=== PATIENT | male | born 2000 | race Two or more races ===

== ENCOUNTER 2024-12-07 07:55 | Inpatient (IN) | payer SELFPAY ==
[~2024-12-07] VITALS: Ht 180.3 cm; Wt 88.8 kg
[2024-12-07 09:02] LABS: Urine Bacteria FEW /hpf (None Seen); Urine Blood Negative /uL (Negative); Urine Clarity Clear (Clear); Urine Color Yellow (Yellow); Urine Mucus FEW (None Seen); Urine Protein, UAD TRACE (Negative); Urine Specific Gravity 1.029 (1.001-1.035); Urine Squamous Epithelial Cell FEW /hpf (<5); Urine Urobilinogen 2 mg/dL (Negative); Urine WBC 3 /HPF (0-3); Urine pH 7.5 (5.0-9.0)
--- NOTE | 2024-12-07 10:00 | ED.PDOC ---
GI ASSESSMENT HPI Comments 24 y.o male presents to the ED for a chief complaint of nausea, vomiting and diffused abdominal pain that started 2 days ago. Patient reports multiple episodes of emesis per day and is unable to keep any solids or fluids down. Patient reports similar symptoms occurred one month ago, was seen at [place] and had a CT scan with contrast in which he was referred to a grade recorder for possible PUD scope. Patient is awaiting for appointment confirmation but states this episode has been constant with sharp abdominal pain. He denies any dysuria, fever, chills, bleeding, diarrhea. Chief Complaint: Nausea/Vomiting Time Seen by MD: 09:15 Primary Care Provider: SHAY Reviewed Notes: Nurses Notes, Medications, Allergies Allergies: Coded Allergies: NO KNOWN ALLERGIES (Unverified , 12/07/24) Information Source: Patient Mode of Arrival: Ambulatory Timing: Days (2) Duration: Since onset Quality: Aching Vomitus: Hard Stool: Normal Severity: Moderate Recent: None Recent Hx of: None Pain Location: Diffuse Modifying Factors: Nothing Associated sign and symptoms: Nausea, Vomiting, Abdominal Pain Past Medical History PAST MEDICAL HISTORY: Denies Surgical History: Denies all surgeries Family History Family History: Reviewed,noncontributory to illness Social History Smoker: Non-Smoker Alcohol: Denies ETOH Use Drugs: Denies Drug Use Lives In: Home Constitutional: denies: chills, diaphoresis, fatigue, fever, malaise, sweats, weakness, others EENTM: denies: blurred vision, double vision, ear bleeding, ear discharge, ear drainage, ear pain, ear ringing, eye pain, eye redness, hearing loss, mouth pain, mouth swelling, nasal discharge, nose bleeding, nose congestion, nose pain, photophobia, tearing, throat pain, throat swelling, voice changes, others Respiratory: denies: cough, hemoptysis, orthopnea, SOB at rest, shortness of breath, SOB with excertion, stridor, wheezing, others Cardiovascular: denies: chest pain, dizzy spells, diaphoresis, Dyspnea on ex ertion, edema, irregular heart beat, left arm pain, lightheadedness, palpitations, PND, syncope, others Gastrointestinal: reports: abdominal pain, nausea, vomiting; denies: abdomen distended, blood streaked bowels, constipated, diarrhea, dysphagia, difficulty swallowing, hematemesis, melena, poor appetite, poor fluid intake, rectal bleeding, rectal pain, others Genitourinary: denies: burning, dysuria, flank pain, frequency, hematuria, incontinence, penile discharge, penile sore, pain, testicle pain, testicle swelling, urgency, others Neurological: denies: dizziness, fainting, headache, left sided numbness, left sided weakness, numbness, paresthesia, pre-existing deficit, right sided numbness, right sided weakness, seizure, speech problems, tingling, tremors, weakness, others Musculoskeletal: denies: back pain, gout, joint pain, joint swelling, muscle pain, muscle stiffness, neck pain, others Integumetry: denies: bruises, change in color, change in hair/nails, dryness, laceration, lesions, lumps, rash, wounds, others Allergic/Immunocompromised: denies: Difficulty Healing, Frequent Infections, Hives, Itching, others Hematologic/Lymphatic: denies: anemia, blood clots, easy bleeding, easy bruising, swollen glands, others Endocrine: denies: excessive hunger, excessive sweating, excessive thirst, excessive urination, flushing, intolerance to cold, intolerance to heat, unexplained weight gain, unexplained weight loss, others Psychiatric: denies: anxiety, bipolar disorder, depression, hopeless, panic disorder, schizophrenia, sleepless, suicidal, others All Other Systems: Reviewed and Negative Physical Exam General Appearance: Moderate Distress HEENT: Normal ENT Inspection, Pharynx Normal, TMs Normal Neck: Full Range of Motion, Non-Tender, Normal, Normal Inspection Respiratory: Chest Non-Tender, Lungs Clear, No Accessory Muscle Use, No Respiratory Distress, Normal Breath Sounds Cardiovascular: No Edema, No JVD, No Murmur, No Gallop, Normal Peripheral Pulses, Regular Rate/Rhythm Breast Exam: Deferred Gastrointestinal: No Organomegaly, Non Tender, No Pulsatile Mass, Normal Bowel Sounds, Soft Genitalia: Deferred Pelvic: Deferred Rectal: Deferred Extremities: No calf tenderness, Normal capillary refill, Normal inspection, Normal range of motion, Non-tender, No pedal edema Musculoskeletal : Apperance: Normal Neurologic: Alert, medical secretary teacher II-XII nml as Tested, No Motor Deficits, Normal Affect, Normal Mood, No Sensory Deficits Cerebellar Function: Normal Reflexes: Normal Skin: Dry, Normal Color, Warm Peripheral Pulses: 3+ Radial (R), 3+ Radial (L) Lymphatic: No Adenopathy Was a procedure done? Was a procedure done?: No GI differential Dx Differential Diagnosis: Constipation, Diverticular disease, Esophagitis, Gastritis/PUD, Gastroenteritis, Electrolyte Imbalance, Viral X-Ray, Labs, Meds, VS Vital Signs Date Time Temp Pulse Resp B/P (MAP) Pulse Ox O2 Delivery O2 Flow Rate FiO2 12/07/24 08:42 97.7 90 17 135/83 (100) 96 97.7 12/07/24 08:42 Room Air* 0 21 12/07/24 08:11 99.3 82 16 117/58 (77) 98 99.3 Lab Test 12/07/24 08:37 Range/Units Urine Color Yellow Yellow Urine Clarity Clear Clear Urine pH 7.5 5.0-9.0 Urine Specific [place] 1.029 1.001-1.035 Urine Protein Trace H Negative Urine Ketones 2+ H Negative Urine Blood Negative Negative /uL Urine Nitrite Negative Negative Urine Bilirubin Negative Negative Urine Urobilinogen 2 H Negative mg/dL Urine Leukocyte Esterase Negative Negative /uL Urine RBC 1 0 - 3 /hpf Urine Microscopic WBC 3 0-3 /HPF Urine Squamous Epithelial Cells Few <5 /hpf Urine Bacteria Few H None Seen /hpf Urine Mucus Few None Seen Urine Glucose Normal Normal mg/dL Patient alert. Complaining of epigastric discomfort. Vitals stable. Answering questions. Has been seen at [facility]. Possible gastric ulcer. He will need endoscope. GI consultation. Urinalysis shows ketones. Dehydration. Establish intravenous access. Was given fluids. Was given Zofran. Was given Protonix. Reviewed his history. Explained to the patient. Continue monitoring. Time of 1ST Reevaluation: 09:55 Reevaluation 1ST: Unchanged Patient Education/Counseling: Diagnosis, Treatment, Prognosis Family Education/Counseling: No Family Present Departure 1 Departure Time of Disposition: 10:24 Impression: Primary Impression: Acute abdominal pain Additional Impression: Peptic ulcer disease Disposition: ADMITTED INPATIENT Admit to: Med Surg Condition: Guarded Critical Care Note Critical Care Time?: No Stability Stability form required: No I personally scribed for RACHEAL LUDWIG MD ([email or web address]) on 12/07/24 at 10:00. Electronically submitted by Anahi Quintero ([facility]). RACHEAL LUDWIG MD Dec 07, 2024 10:00
[2024-12-07 10:42] LABS: Basophils # (auto) 0 10 ^3/uL (0-0.2); Basophils % (auto) 0.1 % (0.0-2.0); Eosinophils # (auto) 0 10 ^3/uL (0-0.8); Hematocrit 48.7 % (41.0-53.0); Hemoglobin 16.7 g/dL (13.5-17.5); Lymphocytes # (auto) 0.6 10 ^3/uL (0.4-5.4); Lymphocytes % (auto) 5.7 % (10.0-50.0); Mean Corpuscular Hemoglobin 29.1 pg (28.0-32.0); Mean Corpuscular Hgb Conc. 34.3 g/dL (32.0-36.0); Mean Corpuscular Volume 84.8 fL (80.0-100.0); Monocytes # (auto) 0.8 10 ^3/uL (0-1.3); Monocytes % (auto) 7.4 % (0.0-12.0); Neutrophils # (auto) 9.1 10 ^3/uL (1.6-8.6); Neutrophils % (auto) 86.8 % (37.0-80.0); Nucleated Red Blood Cells % 0.1 %; Platelet Count (auto) 257 10^3/uL (140-450); Red Blood Cells 5.74 10^6/uL (4.5-5.90); White Blood Cell 10.5 10^3/uL (4.4-10.8)
[2024-12-07 10:54] LABS: Chloride 101 mmol/L (98-107)
[2024-12-07] MEDS: ONDANSETRON HCL 4 MG/2 ML VIAL IV ONE (10:54)
[2024-12-07] MEDS: SODIUM CHLORIDE 0.9% 1,000 ML IV ONE (10:54)
[2024-12-07] MEDS: PANTOPRAZOLE 40 MG/10 ML VIAL INJ IV ONE ×2 (10:54→20:47)
[2024-12-07 10:55] LABS: Anion Gap 14 (5-15); Calcium 10.2 mg/dL (8.7-10.4)
[2024-12-07 11:00] LABS: BUN/Creatinine Ratio 17.2 (10.0-20.0); Blood Urea Nitrogen 17 mg/dL (9-23)
[2024-12-07 11:50] LABS: Carbon Dioxide 20 mmol/L (20-31); Glucose 106 mg/dL (74-106); Potassium 3.4 mmol/L (3.5-5.1); Sodium 135 mmol/L (136-145)
[2024-12-07] MEDS: HYDROcodone-ACET 5/325MG TAB PO ONE (15:43)
--- NOTE | 2024-12-07 20:30 | DVHHPRES ---
History of Present Illness Resident Creating Document: ELI VELÁZQUEZ RESIDENT History of Present Illness 24M medical history of possible peptic ulcer disease diagnosed at [place] with CT abdomen presented with complaints of nausea vomiting and abdominal pain since Sunday. Patient described that he has started having episodes of vomiting which was initially yellow green colored and today morning he had one episode where it was black-colored. Patient mentioned that he ran out of his medications of pantoprazole and Zofran after his possible peptic ulcer disease was diagnosed at [place]. He also mentioned he had sharp left upper quadrant abdominal pain which is on and off, initially was 8/10 now 12/04. He had almost 12 episodes of vomiting today. He was given ciprofloxacin on Sunday by HYDROLOGY TEACHER provider for left upper quadrant pain after which his symptoms got worsened. He denied any complaints of shortness of breath, chest pain, hematochezia, melena, dizziness, headache, abdominal distention. PMH ?PUD PSH Denied Social history smoking, quit one month ago, used to smoke two cigarettes per week alcohol, occasional denied marijuana , any other recreational drug intake Family history SBO f/b Sx in mother HTN DM2 Allergic history denied Review of Systems Review of Systems As described in the HPI Allergies: Coded Allergies: NO KNOWN ALLERGIES (Unverified , 12/07/24) Exam Vital Signs Vital Signs Date Time Temp Pulse Resp B/P (MAP) Pulse Ox O2 Delivery O2 Flow Rate FiO2 12/07/24 19:54 97.5 78 20 136/74 (94) 99 97.5 12/07/24 08:42 Room Air* 0 21 Exam Examination General Appearance: Alert, Oriented X3, Cooperative, No acute distress HEENT: EOMI Respiratory: Clear to auscultation, Normal air movement Cardiovascular: Regular rate, Normal S1, Normal S2 Abdominal: Normal bowel sounds Extremities: No cyanosis, No edema, Normal pulses, No tenderness/swelling Skin: No rashes, No breakdown Neuro: Normal gait, Normal speech, Strength at 5/5 X4 ext, Normal tone, Sensation intact, Cranial nerves 3-12 NL, Reflexes 2+ Psych/Mental Status: Mental status NL, Mood NL Labs/Xrays Labs Test 12/07/24 10:28 12/07/24 08:37 Range/Units White Blood Count 10.5 4.4-10.8 10^3/uL Red Blood Count 5.74 4.5-5.90 10^6/uL Hemoglobin 16.7 13.5-17.5 g/dL Hematocrit 48.7 41.0-53.0 % Mean Corpuscular Volume 84.8 80.0-100.0 fL Mean Corpuscular Hemoglobin 29.1 28.0-32.0 pg Mean Corpuscular Hemoglobin Concent 34.3 32.0-36.0 g/dL Red Cell Distribution Width 14.0 11.8-14.3 % Platelet Count 257 140-450 10^3/uL Mean Platelet Volume 8.5 6.9-10.8 fL Neutrophils (%) (Auto) 86.8 H 37.0-80.0 % Lymphocytes (%) (Auto) 5.7 L 10.0-50.0 % Monocytes (%) (Auto) 7.4 0.0-12.0 % Eosinophils (%) (Auto) 0.0 0.0-7.0 % Basophils (%) (Auto) 0.1 0.0-2.0 % Neutrophils # (Auto) 9.1 H 1.6-8.6 10 ^3/uL Lymphocytes # (Auto) 0.6 0.4-5.4 10 ^3/uL Monocytes # (Auto) 0.8 0-1.3 10 ^3/uL Eosinophils # (Auto) 0 0-0.8 10 ^3/uL Basophils # (Auto) 0 0-0.2 10 ^3/uL Nucleated Red Blood Cells 0.1 % Sodium Level 135 L 136-145 mmol/L Potassium Level 3.4 L 3.5-5.1 mmol/L Chloride Level 101 98-107 mmol/L Carbon Dioxide Level 20 20-31 mmol/L Anion Gap 14 5-15 Blood Urea Nitrogen 17 9-23 mg/dL Creatinine 0.99 0.700-1.30 mg/dL Glomerular Filtration Rate Calc 110 >90 mL/min BUN/Creatinine Ratio 17.2 10.0-20.0 Serum Glucose 106 74-106 mg/dL Calcium Level 10.2 8.7-10.4 mg/dL Urine Color Yellow Yellow Urine Clarity Clear Clear Urine pH 7.5 5.0-9.0 Urine Specific [place] 1.029 1.001-1.035 Urine Protein Trace H Negative Urine Ketones 2+ H Negative Urine Blood Negative Negative /uL Urine Nitrite Negative Negative Urine Bilirubin Negative Negative Urine Urobilinogen 2 H Negative mg/dL Urine Leukocyte Esterase Negative Negative /uL Urine RBC 1 0 - 3 /hpf Urine Microscopic WBC 3 0-3 /HPF Urine Squamous Epithelial Cells Few <5 /hpf Urine Bacteria Few H None Seen /hpf Urine Mucus Few None Seen Urine Glucose Normal Normal mg/dL Assessment/Plan Assessment/Plan Assessment and plan #Upper GI bleed #history of ?Peptic ulcer disease # gastritis seen on CT -NPO -IV protonix -zofran PRN -IV fluids -hemodynamic monitoring -CT abd with IV contrast -GI Consult for possible need for endoscopy # hypokalemia Corrected Monitor BMP # cannabis use disorder UDS positive for cannabis will deputy general counsel for cessation Case discussion with Dr Case Plan discussed with: Patient, Other My Orders Orders - ELI VELÁZQUEZ RESIDENT Procedure Category Date Status Time Admit ADMIT 12/07/24 Transmitted 20:22 Complete Blood Count LAB 12/08/24 Verified 04:00 Comprehensive LAB 12/08/24 Verified Metabolic Panel 04:00 Ct Ab Pel With Iv Con CT 12/07/24 Transmitted Only 20:22 Oxygen By Nasal RT 12/07/24 Transmitted Cannula 20:22 Stat Ekg For Chest MEHRDAD 12/07/24 Transmitted Pain 20:22 Notify Of Changes MEHRDAD 12/07/24 Transmitted From Base 20:22 Maintenance Advisor For MEHRDAD 12/07/24 Transmitted 24 Hours 20:22 Emergency Dysrhythmia MEHRDAD 12/07/24 Transmitted Protocol 20:22 Rhythm Strips Once MEHRDAD 12/07/24 Transmitted Every Shift 20:22 Pantoprazole PHA 12/08/24 Transmitted (Protonix) 10:00 Pantoprazole PHA 12/07/24 Transmitted (Protonix) 20:30 Drug Screen LAB 12/07/24 Transmitted 20:22 Potassium Chl Roberth PHA 12/07/24 Transmitted KCL 20:30 * Gi Dvh Legal Aide CONS 12/07/24 Transmitted 20:22 Npo After Midnight ORDERS 12/07/24 Transmitted Npo (Nothing By DIET 12/08/24 Transmitted Mouth) Diet Breakfast Ondansetron Hcl PHA 12/07/24 Verified (Zofran) 20:30 Date of Service: Dec 07, 2024 Billing Provider: TIARRA CASE MD Common Visit Codes: [id number] INP/OBS CARE (HIGH) ELI VELÁZQUEZ RESIDENT Dec 07, 2024 20:30 TIARRA CASE MD Dec 08, 2024 18:29
[2024-12-07] MEDS: POTASSIUM CHL 20MEQ/100ML 100 ML IV ONE (20:58)
[2024-12-07] MEDS: IOHEXOL 300 MG/ML 100ML BOTTLE IJ ONE (21:03)
[2024-12-07 21:45] LABS: Amphetamine Screen, Urine Neg (NEGATIVE); Barbiturate Scree,Urine Neg (NEGATIVE); Benzodiazephine Screen, Urine Neg (NEGATIVE); Cannabinoid Screen, Urine Pos (NEGATIVE); Cocaine Screen, Urine Neg (NEGATIVE); Opiate Scree,Urine Neg (NEGATIVE); Phencyclidine Screen, Urine Neg (NEGATIVE)
--- NOTE | 2024-12-07 22:42 | DVH ---
Examination: ABPLIV CLINICAL INDICATION: GI bleed COMPARISON: None. CONTRAST USED: Intravenous. TECHNIQUE: A post-contrast CT study of the abdomen and pelvis was performed after the administration of intravenous contrast medium. The examination was conducted with 5 mm thin slices, adhering to ALAR A (As Low as Reasonably Achievable) principles. Multiplanar reconstructions were obtained. FINDINGS: CT ABDOMEN: Lung Base: The evaluation of lung bases demonstrates no focal infiltrates or pleural effusion. Liver: The liver is mildly enlarged, measuring 18.9 cm in the craniocaudal axis. The portal venous ra dicles are normal. There is no intrahepatic biliary radicle dilatation. A tiny 2 mm cyst is noted in segment V. Spleen: The spleen is normal in size. No focal abnormality. Gallbladder: The gallbladder is distended. No intrinsic abnormality or pericholecystic fat stranding. The common bile duct is not dilated. Pancreas: The pancreas is normal in size and shape. No focal lesion is seen within. The peripancreati c fat-planes are normal. Retroperitoneum: Both adrenal glands are normal in size and morphology. There is no significant retro peritoneal lymphadenopathy. Right kidney is normal in size. No hydronephrosis or calculus. Left kidne y is normal in size. No hydronephrosis or calculus. Stomach and Small Bowel: The bowel loops are unremarkable. Mildly prominent gastric rugae raise the p ossibility of gastritis. Few subcentimeter sized central mesenteric and right iliac fossa lymph nodes are noted would be suggestive of reactive etiology. There is no ascites. Skeletal System: Thoracolumbar spine and pelvic bones do not reveal any significant abnormality. Vessels: Aorta, IVC, and the mesenteric vessels appear unremarkable. CT PELVIS: Appendix: The appendix is unremarkable in appearance. Colon: The ascending, transverse, descending, sigmoid colon, and rectum are unremarkable. Bladder: The urinary bladder is distended and normal. Pelvic Organs: The prostate is normal in size. No pelvic lymphadenopathy is identified. No abnormal f luid collection is seen. IMPRESSION: 1. The liver is mildly enlarged, measuring 18.9 cm in the craniocaudal axis, with a tiny 2 mm cyst i n segment V. 2. Mildly prominent gastric rugae suggest the possibility of gastritis. 3. Few subcentimeter sized central mesenteric and right iliac fossa lymph nodes are noted would be s uggestive of reactive etiology. 4. No intra-abdominal mass. 5. No ascites. 6. No free air or acute inflammatory changes. Electronically Signed 12/07/2024 22:40 Elijah Doss
[2024-12-08 02:08] VITALS: BP 105/49; PULSE 72; RESP 16; TEMP 98.4; O2SAT 98
[2024-12-08] MEDS ORDERED: PANT40T PO ×2 (04:16→14:13)
[2024-12-08] MEDS: ONDANSETRON HCL 4 MG/2 ML VIAL IV PRN (05:20)
[2024-12-08] MEDS: SODIUM CHL 0.9% 100 ML IV ONE (06:00)
[2024-12-08] MEDS: POTASSIUM CHL 20MEQ/50ML 50 ML IV ONE ×2 (06:00→08:15)
[2024-12-08 07:00] LABS: Basophils # (auto) 0 10 ^3/uL (0-0.2); Basophils % (auto) 0.2 % (0.0-2.0); Eosinophils # (auto) 0 10 ^3/uL (0-0.8); Eosinophils % (auto) 0.2 % (0.0-7.0); Hemoglobin 16.1 g/dL (13.5-17.5); Lymphocytes # (auto) 1.4 10 ^3/uL (0.4-5.4); Lymphocytes % (auto) 18.3 % (10.0-50.0); Mean Corpuscular Hemoglobin 29.4 pg (28.0-32.0); Mean Corpuscular Hgb Conc. 34.9 g/dL (32.0-36.0); Monocytes % (auto) 12.6 % (0.0-12.0); Neutrophils # (auto) 5.3 10 ^3/uL (1.6-8.6); Neutrophils % (auto) 68.7 % (37.0-80.0); Nucleated Red Blood Cells % 0.1 %; Platelet Count (auto) 275 10^3/uL (140-450); Red Blood Cells 5.48 10^6/uL (4.5-5.90); Red Cell Distribution Width 14.2 % (11.8-14.3); White Blood Cell 7.8 10^3/uL (4.4-10.8)
--- NOTE | 2024-12-08 07:19 | ECG ---
[facility] Test Date: 2024-12-08 Test Time: 07:05:33 Pat Name: BONNIE BROWN Department: ED Room: [address] [place] [address] A Gender: M Lead Systems Engineer: PRAVIN : 2000 Requested By: RACHEAL LUDWIG Order Number: [id number] Reading MD: Robbin Sheriff Measurements Intervals Post Rate: 61 P: 43 MD: 113 QRS: 98 QRSD: 98 T: 65 QT: 401 QTc: 404 Interpretive Statements Sinus rhythm Borderline short MD interval Consider right ventricular hypertrophy Electronically Signed On 12-10-2024 21:00:05 PDT by Robbin Sheriff Please click the below link to view image of tracing.
[2024-12-08 07:22] LABS: Alanine Aminotransferase 15 U/L (7-40); Alkaline Phosphatase 73 U/L (46-116); Anion Gap 12 (5-15); Aspartate Aminotransferase 17 U/L (13-40); BUN/Creatinine Ratio 14.3 (10.0-20.0); Blood Urea Nitrogen 15 mg/dL (9-23); Calcium 10.3 mg/dL (8.7-10.4); Carbon Dioxide 23 mmol/L (20-31); Chloride 103 mmol/L (98-107); Sodium 138 mmol/L (136-145)
[2024-12-08 07:23] LABS: Albumin 5.4 g/dL (3.2-4.8); Bilirubin, Total 1.5 mg/dL (0.2-1.0); Glucose 107 mg/dL (74-106); Potassium 3.3 mmol/L (3.5-5.1); Total Protein 8.8 g/dL (5.7-8.2)
[2024-12-08] MEDS: SODIUM CHLORIDE 0.9% 1,000 ML IV ONE (07:45)
[2024-12-08] MEDS: SODIUM CHLORIDE 0.9% 1,000 ML IV SCH (07:45)
[2024-12-08 07:56] VITALS: PULSE 92; RESP 17; O2SAT 94
[2024-12-08 10:07] LABS: COVID19 ANTIGEN SOFIA FIA NEGATIVE (NEGATIVE); Rapid Influenza A Negative (Negative); Rapid Influenza B Negative (Negative)
[2024-12-08] MEDS: PANTOPRAZOLE 40 MG/10 ML VIAL INJ IV SCH (10:33)
--- NOTE | 2024-12-08 11:58 | DVHINCON2 ---
GI Consult Consult Note GI consult note Date of Consultation: 12/08/2024 Chief Complaint: PUD, black colored vomiting Referring Physician: Dr. Dexter H&P: 24-year-old male presented to ER with nausea and vomiting and epigastric discomfort Patient had similar symptoms on and off for the past four months, but got worse last few days Patient has multiple episodes of nausea and vomiting, mostly yellow bile, one episode of black emesis yesterday, after patient had used activated charcoal Epigastric discomfort is right before the nausea and vomiting. No abdominal pain at this time No history of GERD. No EGD in past Patient admits to using weed gummies for the last 3-4 months, and this seems to be when his symptoms of nausea vomiting also got triggered Patient has stopped using the we had gummies in the last 7-10 days Denies melena or red blood in stool Patient also was seen at [facility] for similar symptoms, treated with Protonix, patient ran out of Protonix and presented to ER since he did know where he can get a refill with this Protonix Past Medical History: ?PUD Past Surgical History: Denies Social History: NO smoking, drinking ETOH + weed gummies Family History: Noncontributory Review of Systems: Constitutional: no fever, chill, weight loss HEENT: no eye pain, no hearing loss, no oral lesion, no scleral icterus Heart: no chest pain, no chest pressure Lung: no cough, no dyspnea with exertion Abdomen: see HPI Physical exam: General: NAD, AAOX3 Chest: lung downing clear to auscultation Heart: RRR, no murmur Abdomen: non-distended, no tenderness to palpation, +BS Labs: Labs Test 12/08/24 09:00 12/08/24 08:16 12/08/24 06:34 12/07/24 08:37 Range/Units Influenza Type A Antigen Negative Negative Influenza Type B Antigen Negative Negative SARS-CoV-2 Antigen (Rapid) Negative NEGATIVE Lactic Acid Level 0.9 0.4-2.0 mmol/L White Blood Count 7.8 # 4.4-10.8 10^3/uL Red Blood Count 5.48 4.5-5.90 10^6/uL Hemoglobin 16.1 13.5-17.5 g/dL Hematocrit 46.0 41.0-53.0 % Mean Corpuscular Volume 84.0 80.0-100.0 fL Mean Corpuscular Hemoglobin 29.4 28.0-32.0 pg Mean Corpuscular Hemoglobin Concent 34.9 32.0-36.0 g/dL Red Cell Distribution Width 14.2 11.8-14.3 % Platelet Count 275 140-450 10^3/uL Mean Platelet Volume 8.3 6.9-10.8 fL Neutrophils (%) (Auto) 68.7 37.0-80.0 % Lymphocytes (%) (Auto) 18.3 10.0-50.0 % Monocytes (%) (Auto) 12.6 H 0.0-12.0 % Eosinophils (%) (Auto) 0.2 0.0-7.0 % Basophils (%) (Auto) 0.2 0.0-2.0 % Neutrophils # (Auto) 5.3 1.6-8.6 10 ^3/uL Lymphocytes # (Auto) 1.4 0.4-5.4 10 ^3/uL Monocytes # (Auto) 1.0 0-1.3 10 ^3/uL Eosinophils # (Auto) 0 0-0.8 10 ^3/uL Basophils # (Auto) 0 0-0.2 10 ^3/uL Nucleated Red Blood Cells 0.1 % Sodium Level 138 136-145 mmol/L Potassium Level 3.3 L 3.5-5.1 mmol/L Chloride Level 103 98-107 mmol/L Carbon Dioxide Level 23 20-31 mmol/L Anion Gap 12 5-15 Blood Urea Nitrogen 15 9-23 mg/dL Creatinine 1.05 0.700-1.30 mg/dL Glomerular Filtration Rate Calc 103 >90 mL/min BUN/Creatinine Ratio 14.3 10.0-20.0 Serum Glucose 107 H 74-106 mg/dL Hemoglobin A1c 4.7 <5.7 % A1C Calcium Level 10.3 8.7-10.4 mg/dL Total Bilirubin 1.5 H 0.2-1.0 mg/dL Aspartate Amino Transferase (AST) 17 13-40 U/L Alanine Aminotransferase (ALT) 15 7-40 U/L Alkaline Phosphatase 73 46-116 U/L Total Protein 8.8 H 5.7-8.2 g/dL Albumin 5.4 H 3.2-4.8 g/dL Thyroid Stimulating Hormone (TSH) 1.72 0.55-4.78 uIU/mL Urine Color Yellow Yellow Urine Clarity Clear Clear Urine pH 7.5 5.0-9.0 Urine Specific [place] 1.029 1.001-1.035 Urine Protein Trace H Negative Urine Ketones 2+ H Negative Urine Blood Negative Negative /uL Urine Nitrite Negative Negative Urine Bilirubin Negative Negative Urine Urobilinogen 2 H Negative mg/dL Urine Leukocyte Esterase Negative Negative /uL Urine RBC 1 0 - 3 /hpf Urine Microscopic WBC 3 0-3 /HPF Urine Squamous Epithelial Cells Few <5 /hpf Urine Bacteria Few H None Seen /hpf Urine Mucus Few None Seen Urine Glucose Normal Normal mg/dL Urine Opiates Screen Neg NEGATIVE Urine Fentanyl Screen Neg NEGATIVE Urine Barbiturates Screen Neg NEGATIVE Urine Phencyclidine Screen Neg NEGATIVE Urine Amphetamines Screen Neg NEGATIVE Urine Benzodiazepines Screen Neg NEGATIVE Urine Cocaine Screen Neg NEGATIVE Urine Cannabinoids Screen Pos NEGATIVE Imaging: CT abdomen pelvis IMPRESSION: 1. The liver is mildly enlarged, measuring 18.9 cm in the craniocaudal axis, with a tiny 2 mm cyst in segment V. 2. Mildly prominent gastric rugae suggest the possibility of gastritis. 3. Few subcentimeter sized central mesenteric and right iliac fossa lymph nodes are noted would be suggestive of reactive etiology. 4. No intra-abdominal mass. 5. No ascites. 6. No free air or acute inflammatory changes. Assessment: Nausea and vomiting Possible gastritis per CT Marijuana use Plan: Discussed with Dr. Stephens Possible EGD tomorrow discussed with patient, including discussion of risks benefits alternatives of procedure and sedation, patient is scheduled to work tomorrow and would like to be treated with medications at this time Clear liquid diet advance as tolerated Protonix 40 mg everyday Carafate and Zofran Possible outpatient EGD recommended Follow-up in GI clinic in 2-3 weeks Return to ER if symptoms worsen Discussed plan with patient and resident Dr. Conway Thank you for this consult Date of Service: Dec 08, 2024 Billing Provider: JEROME ESPOSITO Common Visit Codes: CONSULT ONLY Consultation Codes: [id number] CONSULT <45MIN JEROME ESPOSITO Dec 08, 2024 11:58
[2024-12-08] MEDS ORDERED: ZOFR4T PO (14:13)
[2024-12-08] MEDS ORDERED: SUCR1TAB31 OR (14:13)
--- NOTE | 2024-12-08 15:30 | DVHDSRES ---
Discharge Summary Date of Admission Resident Creating Document: ELI VELÁZQUEZ Dec 07, 2024 at 20:22 Date of Discharge: Dec 08, 2024 Admitting Diagnosis Intractable abdominal pain with nausea and vomiting likely due to acute gastroenteritis vital, infectious cause Hyperemesis likely cannabinoids induced History of gastritis Labs/Diagnostic Data: Laboratory Results Test 12/08/24 09:00 12/08/24 08:16 12/08/24 06:34 12/07/24 08:37 Influenza Type A Antigen Negative (Negative) Influenza Type B Antigen Negative (Negative) SARS-CoV-2 Antigen (Rapid) Negative (NEGATIVE) Lactic Acid Level 0.9 mmol/L (0.4-2.0) White Blood Count 7.8 10^3/uL (4.4-10.8) Red Blood Count 5.48 10^6/uL (4.5-5.90) Hemoglobin 16.1 g/dL (13.5-17.5) Hematocrit 46.0 % (41.0-53.0) Mean Corpuscular Volume 84.0 fL (80.0-100.0) Mean Corpuscular Hemoglobin 29.4 pg (28.0-32.0) Mean Corpuscular Hemoglobin Concent 34.9 g/dL (32.0-36.0) Red Cell Distribution Width 14.2 % (11.8-14.3) Platelet Count 275 10^3/uL (140-450) Mean Platelet Volume 8.3 fL (6.9-10.8) Neutrophils (%) (Auto) 68.7 % (37.0-80.0) Lymphocytes (%) (Auto) 18.3 % (10.0-50.0) Monocytes (%) (Auto) 12.6 % (0.0-12.0) Eosinophils (%) (Auto) 0.2 % (0.0-7.0) Basophils (%) (Auto) 0.2 % (0.0-2.0) Neutrophils # (Auto) 5.3 10 ^3/uL (1.6-8.6) Lymphocytes # (Auto) 1.4 10 ^3/uL (0.4-5.4) Monocytes # (Auto) 1.0 10 ^3/uL (0-1.3) Eosinophils # (Auto) 0 10 ^3/uL (0-0.8) Basophils # (Auto) 0 10 ^3/uL (0-0.2) Nucleated Red Blood Cells 0.1 % Sodium Level 138 mmol/L (136-145) Potassium Level 3.3 mmol/L (3.5-5.1) Chloride Level 103 mmol/L (98-107) Carbon Dioxide Level 23 mmol/L (20-31) Anion Gap 12 (5-15) Blood Urea Nitrogen 15 mg/dL (9-23) Creatinine 1.05 mg/dL (0.700-1.30) Glomerular Filtration Rate Calc 103 mL/min (>90) BUN/Creatinine Ratio 14.3 (10.0-20.0) Serum Glucose 107 mg/dL (74-106) Hemoglobin A1c 4.7 % A1C (<5.7) Calcium Level 10.3 mg/dL (8.7-10.4) Total Bilirubin 1.5 mg/dL (0.2-1.0) Aspartate Amino Transferase (AST) 17 U/L (13-40) Alanine Aminotransferase (ALT) 15 U/L (7-40) Alkaline Phosphatase 73 U/L (46-116) Total Protein 8.8 g/dL (5.7-8.2) Albumin 5.4 g/dL (3.2-4.8) Thyroid Stimulating Hormone (TSH) 1.72 uIU/mL (0.55-4.78) Plasma/Serum Blood Alcohol 3.8 mg/dL (<10) Urine Color Yellow (Yellow) Urine Clarity Clear (Clear) Urine pH 7.5 (5.0-9.0) Urine Specific [place] 1.029 (1.001-1.035) Urine Protein Trace (Negative) Urine Ketones 2+ (Negative) Urine Blood Negative /uL (Negative) Urine Nitrite Negative (Negative) Urine Bilirubin Negative (Negative) Urine Urobilinogen 2 mg/dL (Negative) Urine Leukocyte Esterase Negative /uL (Negative) Urine RBC 1 /hpf (0 - 3) Urine Microscopic WBC 3 /HPF (0-3) Urine Squamous Epithelial Cells Few /hpf (<5) Urine Bacteria Few /hpf (None Seen) Urine Mucus Few (None Seen) Urine Glucose Normal mg/dL (Normal) Urine Opiates Screen Neg (NEGATIVE) Urine Fentanyl Screen Neg (NEGATIVE) Urine Barbiturates Screen Neg (NEGATIVE) Urine Phencyclidine Screen Neg (NEGATIVE) Urine Amphetamines Screen Neg (NEGATIVE) Urine Benzodiazepines Screen Neg (NEGATIVE) Urine Cocaine Screen Neg (NEGATIVE) Urine Cannabinoids Screen Pos (NEGATIVE) Other Laboratory Tests 12/08/24 06:34 Brief Hx & Hospital Course: HPI-patient is 24 years old male with a history of peptic ulcer disease came with a complaint of abdominal pain nausea and vomiting. As per patient he had diagnosis of peptic ulcer disease at [facility] months before and he was on pantoprazole. For the last 1 month has been has been getting worse especially on since Sunday has been really worse, 8/10, crampy in nature, no radiation, aggravated with vomiting. Patient also had nausea and vomiting almost 14-50 times, initially yellowish then whitish and at 1 point last 1 was blackish. Patient related this blackish coloration of the you vomiting to active drug hold he 2 day before. Denied any fever, acute dysuria or chest pain or shortness of breath or dysarthria or acute joint pain or swelling. UDS positive for cannabinoids. Paroxysmal alcohol 3.8. Patient was negative for COVID 19, influenza type A and B. urinalysis not significant for UTI. Hospital [id number] is 24 years old male with a history of peptic ulcer disease came with a complaint of abdominal pain nausea and vomiting. As per patient he had diagnosis of peptic ulcer disease at [facility] months before and he was on pantoprazole. For the last 1 month has been has been getting worse especially on since Sunday has been really worse, 8/10, crampy in nature, no radiation, aggravated with vomiting. Patient also had nausea and vomiting almost 14-50 times, initially yellowish then whitish and at 1 point last 1 was blackish. Patient related this blackish coloration of the you vomiting to active drug hold he 2 day before. Denied any fever, acute dysuria or chest pain or shortness of breath or dysarthria or acute joint pain or swelling. UDS positive for cannabinoids. Paroxysmal alcohol 3.8. Patient was negative for COVID 19, influenza type A and B. urinalysis not significant for UTI. Patient was seen by lunch cook, recommended for upper EGD. Patient denied to do it today. Patient was given a choice to do a tomorrow per patient denied and he wants to do it as an outpatient. Patient was counseled about the importance of endoscopy. Patient verbalized understanding. Patient was reports feeling better, nausea and vomiting subsided pain has improved a lot. Patient is being discharged home with the pantoprazole, sucralfate, Zofran. Patient was advised to follow up with the primary care physician in 1 week. Patient was also counseled about the effect of substance abuse on health. Patient verbalized understanding. Patient's meds were sent to the pharmacy electronically. Patient was hemodynamically stable on discharge. Assessment Intractable abdominal pain with nausea and vomiting likely due to acute gastroenteritis vital, infectious cause Hyperemesis likely cannabinoids induced Acute abdomen ruled out/acute cholecystitis ruled out History of gastritis/PUD Mild hypokalemia supplemented Discharge plan Pantoprazole 40 mg p.o. daily Sucralfate 1 g p.o. daily q.6h for 2 weeks Zofran 4 mg q.8h PRN as prescribed Please follow up with the lunch cook in [address] Stephens or RUSSELL Guallpa Please follow up with the primary care physician in 1 week for further evaluation and care Condition at Discharge: Stable Final Diagnosis/Problems List Intractable abdominal pain with nausea and vomiting likely due to acute gastroenteritis vital, infectious cause Hyperemesis likely cannabinoids induced History of gastritis/PUD Mild hypokalemia supplemented Discharge Disposition: Home Discharge Instruct/Medications Diet: Regular, Cardiac 2g Na,low cholest Follow Up/Referral: Please follow up with the lunch cook in [address] Stephens or RUSSELL Guallpa Please follow up with the primary care physician in 1 week for further evaluation and care Medications: Pantoprazole 40 mg p.o. daily Sucralfate 1 g p.o. daily q.6h for 2 weeks Zofran 4 mg q.8h PRN as prescribed Please follow up with the lunch cook in [address] Stephens or RUSSELL Guallpa Please follow up with the primary care physician in 1 week for further evaluation and care Discharge Statement: "Patient was advised to return to the ER or call 911 if any headaches, dizziness, shortness of breath, chest pain, abdominal pain, bleeding, fevers, or worsening of medical condition. Patient was counseled about treatment plan, medications, possible side effects, patientverbalized understanding. All questions were answered to the best of my ability. This discharge took greater then 30 minutes in planning, reviewing documentation, counseling the patient, and discussing with other team members." ASSESSMENT ASSESSMENT Assessment KRISSY LOPEZ RESIDENT Dec 08, 2024 15:30
[2024-12-08] MEDS: SUCRALFATE 1 GM/10 ML ORAL SUSP PO SCH (15:41)
[2024-12-08 15:47] VITALS: BP 113/59; PULSE 85; RESP 17; TEMP 98.5; O2SAT 94
== END 2024-12-08 15:50 | disposition home or self-care (01) | DRG 392 ==
LOC: ER 07:55 → OVERFLOW 20:22
PROVIDERS: ADMIT Student in an Organized Health Care Education/Training Program; ATTEND Student in an Organized Health Care Education/Training Program
DX: A08.4 Viral intestinal infection, unspecified (principal); K92.2 Gastrointestinal hemorrhage, unspecified; Z20.822 Contact with and (suspected) exposure to COVID-19; E87.6 Hypokalemia; F12.90 Cannabis use, unspecified, uncomplicated; Z82.49 Family history of ischemic heart disease and other diseases of the circulatory system; Z83.3 Family history of diabetes mellitus; Z79.899 Other long term (current) drug therapy
CPT/HCPCS: 36415; 74177; 80048; 80053; 80307; 80320; 81001; 83036; 83605; 84443; 85025; 87426; 87804; 93005; 96361; 96374; 96375; 96376; G0378; J2405; J2470; J3480